=== PATIENT | male | born 1950 | race Caucasian/White ===

== ENCOUNTER → 2020-05-28 | Outpatient (CLI) | payer MEDICARE, MEDICAID ==
[~2020-05-28] MED LIST: ACETAMINOPHEN TAB 650MG DOSE (2X325MG) PO PRN; COMPTAB7 PO; HYDR-643 PO; LEVO50TA5 PO; LIDOCAINE 1% MDV 20ML VIAL As Ordered ONE; MEDICAL MARIJUANA INH; ONDANSETRON 4 MG TAB PO ONE; PANT20TA6 PO; SENN-80 PO; SODIUM BICARBONATE 8.4% INJ 50MEQ 50 ML VIAL As Ordered ONE; [UNRECOGNIZED DRUG - CODE] PO
[2020-05-28 14:55] VITALS: BP 127/78
--- NOTE | 2020-05-28 16:52 | REP ---
INDICATION: kidney biopsy. COMPARISON: None. TECHNIQUE: The procedure was performed by AXEL Jones, under the direct supervision of Dr. Mascorro. The risks and benefits of the procedure were explained to the patient and an informed consent was obtained both verbally and written. Directly prior to the start of the procedure a formal time-out was completed in the procedure room. FINDINGS: Using ultrasound guidance the left renal mass was localized. The skin was prepped and draped in a sterile fashion. Fifteen mL of buffered lidocaine was used as a local anesthetic. Using ultrasound guidance a 17/18 gauge coaxial needle biopsy system was inserted and advanced into the left renal mass. Six core biopsy specimens were obtained and sent to the lab for further analysis. The patient tolerated the procedure well and there were no immediate complications. The patient did have a bout of nausea and was given Zofran P.O.. After the appropriate amount of monitored convalescence the patient was discharged from the department. IMPRESSION: 1. Ultrasound-guided left renal mass biopsy. <Electronically signed by Nicci Corley > 05/28/20 1604 <Electronically signed by Nabil Mascorro > 05/28/20 [id number]
== END ==
LOC: M IRPRO 11:25
PROVIDERS: ATTEND Internal Medicine Hematology & Oncology
DX: C67.9 Malignant neoplasm of bladder, unspecified (principal); Z79.899 Other long term (current) drug therapy; Z88.5 Allergy status to narcotic agent

== ENCOUNTER → 2020-06-05 | Outpatient (REF) | payer MEDICARE, MEDICAID ==
[~2020-06-05] MED LIST changes: -ACETAMINOPHEN TAB 650MG DOSE (2X325MG) PO PRN; +FAMO20TA PO; -LIDOCAINE 1% MDV 20ML VIAL As Ordered ONE; +ONDA8TAB8 PO; -ONDANSETRON 4 MG TAB PO ONE; +OXYC-141 PO; -SODIUM BICARBONATE 8.4% INJ 50MEQ 50 ML VIAL As Ordered ONE
[2020-06-05 13:41] LABS: APPEARANCE, URINE CLOUDY (CLEAR); BACTERIA, URINE AUTO 1+ (NEGATIVE); BILIRUBIN, URINE AUTO NEGATIVE (NEGATIVE); BLOOD, URINE BLOOD 3+ (NEGATIVE); COLOR, URINE RED (YELLOW); GLUCOSE, URINE (UA) AUTO NEGATIVE (NEGATIVE); KETONE, URINE AUTO TRACE mg/dL (NEGATIVE); LEUKOCYTE ESTERASE, URINE AUTO 1+ (NEGATIVE); NITRITE, URINE AUTO NEGATIVE (NEGATIVE); PROTEIN, URINE AUTO 2+ mg/dL (NEGATIVE); RBC, URINE AUTO TNTC /HPF (0-3); SPECIFIC GRAVITY URINE AUTO 1.013 (1.002-1.035); SQUAMOUS EPITHELIAL CELL UR AU 0 /HPF (0-6); UROBILINOGEN, URINE AUTO 0.2 mg/dL (0.0-2.0); WBC, URINE AUTO 123 /HPF (0-3)
== END ==
LOC: M SMT 13:07
PROVIDERS: ATTEND Nurse Practitioner Women's Health
DX: R31.0 Gross hematuria (principal)

== ENCOUNTER → 2020-06-11 | Outpatient (CLI) | payer MEDICARE, MEDICAID ==
--- NOTE | 2020-06-12 14:44 | REP ---
INDICATION: DIAGNOSING PULMONARY LUNG NODULE. History of colon carcinoma in 2017. Recent ultrasound-guided left pararenal space needle biopsy produced a histologic diagnosis of invasive high-grade papillary urothelial carcinoma. COMPARISON: Comparison CT abdomen and pelvis May 18, 2020 from [facility].. TECHNIQUE: Fifty-two minutes following the intravenous injection of a 8.38 mCi dose of F-18 FDG, three-dimensional PET scintigraphy is acquired from the skull base to the proximal thighs. Triplanar noncontrast CT scanning is acquired through the same anatomic range for attenuation correction, and image registration with scan parameters optimized to minimize radiation exposure to the patient. PET scintigraphy and CT datasets were fused and displayed on a workstation with multiplanar and projection display capability. FINDINGS: There is fairly bulky left supraclavicular lymphadenopathy extending into the left subclavian node chain. Maximum standard uptake value in the supraclavicular region is 9.35. The subclavian lymph node hypermetabolic uptake on the left mass has a maximum SUV of 8.42. There are multiple small pulmonary nodules predominantly in the lower lung castro. Some of these are mildly hypermetabolic with maximum SUV value ranging up to 3.71. There are 3 to 4 identifiable foci of hypermetabolic uptake in the liver the largest of which is inferiorly in the right lobe maximum standard uptake value 8.30. There is bulky upper abdominal retroperitoneal hypermetabolic adenopathy. Maximum standard uptake value in this aortocaval and upper abdominal retroperitoneal adenopathy ranges up to 10.41. There is a very large infiltrative mass in the left kidney extending in the perinephric and pararenal fat. This is shows heterogeneous hypermetabolic uptake maximum standard uptake value up to 10.42. Retroperitoneal ryder hypermetabolic uptake extends into the right common iliac lymph node chain where maximum standard uptake value is 9.19. There are 2 foci of hypermetabolic uptake in the pelvis consistent with skeletal metastatic lesions. One is in the right iliac bone, maximum SUV value 4.64 and the other is in the left anterior iliac wing where maximum SUV values 5.81. IMPRESSION: Large infiltrative renal and pararenal space mass on the left with bulky regional and retroperitoneal metastatic adenopathy. There is a hypermetabolic metastatic disease in the liver, in the bony pelvis, and in the lungs. Hypermetabolic adenopathy is seen in the left supraclavicular and left subclavian lymph node chain. <Electronically signed by Joe Locke > 06/12/20 [id number]
== END ==
LOC: M PLARAD 13:13
PROVIDERS: ATTEND Internal Medicine Hematology & Oncology
DX: R91.8 Other nonspecific abnormal finding of lung field (principal); C68.8 Malignant neoplasm of overlapping sites of urinary organs; C78.7 Secondary malignant neoplasm of liver and intrahepatic bile duct
CPT/HCPCS: 78815; A9552

== ENCOUNTER → 2020-07-05 | Outpatient (CLI) | payer MEDICARE, MEDICAID ==
[~2020-07-05] MED LIST changes: +LIDOCAINE 1% MDV 20ML VIAL As Ordered ONE; +MIDAZOLAM INJ 2MG/2ML VIAL (J2250 PER 1MG) As Ordered ONE; +MOM30SS PO; +ceFAZolin 2 GM/D5W 50 ML IV BAG (J0690 PER 500MG) As Ordered ONE; +diphenhydrAMINE 50MG/ML VIAL (J1200) As Ordered ONE; +fentaNYL 100 MCG/2 ML INJECTION (J3010) As Ordered ONE
--- NOTE | 2020-07-05 10:16 | IRHP ---
[facility] IR Pre-Procedure H & P General Date of Service: Jul 05, 2020 Procedure: Same Day Surgery Interval History and Physical I have seen the patient and reviewed last H & P performed within 30 days. There is no significant interval change. History of Present Illness Chief Complaint The patient is a 70-year-old male admitted with a reason for visit of Urothelial Cancer. PRE-PROCEDURE DIAGNOSIS: urothelial cancer HEART: normal rate. LUNGS: normal breathing at rest. ASA Classification ASA Classification: III-Severe systemic dis. Mallampati Score: II NPO: Yes Problems with prior sedation: No Obstructive Sleep Apnea: No Plan moderate sedation Allergies Coded Allergies: codeine (Verified Adverse Reaction, Mild, CLAMMY SKIN, 05/27/20) Home Medications Scheduled Famotidine (Famotidine), 20 MG PO BID Hydroxyzine HCl (Hydroxyzine HCl), 10 MG PO DAILY Levothyroxine Sodium (Levothyroxine Sodium), 50 MCG PO DAILY, (Reported) Ondansetron (Ondansetron Odt), 8 MG PO Q6H Oxycodone HCl (Oxycontin), 1 TAB PO PRN, (Reported) Saw/Vit E/Sod Pauly/Lyc/Beta/Pyg (Prostate Health Caplet), 1 TAB PO DAILY, (Reported) Sennosides (Senna), 2 TAB PO BID Scheduled PRN [Medical Marijuana], Unknown Dose INH PRN PRN for PAIN, (Reported) Miscellaneous Medications Milk Of Magnesia (Milk of Magnesia), 30 ML PO, (Reported) VS, I&O, 24H, Fishbone Vital Signs/I&O Vital Signs Date Time Temp Pulse Resp B/P (MAP) Pulse Ox O2 Delivery O2 Flow Rate FiO2 07/05/20 08:55 98.7 57 18 97 Room Air LORNA LARA MD Jul 05, 2020 10:16
--- NOTE | 2020-07-05 11:28 | POST-OPPD ---
Postoperative Procedure Note Date Of Procedure: Jul 05, 2020 Time Of Procedure: 11:28 IR Ultrasound and fluoroscopy guided port placement IR Ultrasound of the neck. IR Moderate sedation. Clinical indication: Urothelial cancer. Physician: Dr. Cotto. Procedure: The patient was advised of the benefits, risks, and alternatives of the procedure and informed consent was obtained. A time-out was performed with verification of the patient's name, MRN, site of procedure and type of procedure to be performed. The patient was positioned in the supine position on the angiographic table. The site was prepped and draped in the usual sterile fashion. Moderate sedation was performed by the physician including the presence of an independent trained RN who assisted and monitored the patient's level of consciousness and physiologic status. Following the administration of fentanyl and Versed , the physician spent 45 minutes of continuous face to face time with the patient. Ultrasound of the neck reveals a patent and compressible right internal jugular vein. A marketing administrative assistant radiograph reveals no gross abnormality. The neck and anterior chest wall were anesthetized with lidocaine. The right internal jugular vein was accessed using a microintroducer needle under ultrasound guidance, via a lateral approach. An 018 wire was advanced into the superior vena cava, the needle was removed and a microsheath was placed. An Amplatz wire was then passed into the inferior vena cava. An incision at the internal jugular vein access site and anterior chest wall were made using a scalpel. An incision was made at the anterior chest wall. A small pocket was created using a combination of blunt and sharp dissection. A tunneling device was then used to pass the catheter from the pocket to the neck puncture site. An 8- Romanian Angio Merfac Smart power port was then positioned in the pocket. The catheter was then measured and cut. The introducer sheath was exchanged for a peel-away sheath. The catheter was passed through the peel-away sheath into the internal jugular vein and the peel-away sheath was removed. The port tip was positioned at the cavoatrial junction. The port was then accessed with a Rossi needle. The port flushes and aspirates well. The puncture site in the neck was closed. The chest wall incision was then closed with 2-0 Vicryl and 4-0 Monocryl. Glue and Steri- Strips were applied. A sterile dressing was then applied. The patient tolerated the procedure well and was returned to the PRU in stable condition. Estimated blood loss: <5 ml. Complications: None. Conclusion: 1. Successful placement of an 8-Romanian Angio dynamics Smart power port via the right internal jugular vein. The port is ready for immediate use. 2. Patient to follow up in IR clinic in 2 weeks. Thank you for this referral. LORNA COTTO MD Jul 05, 2020 11:28
[2020-07-05 12:51] VITALS: BP 132/77
== END ==
LOC: M IRPRO 08:47
PROVIDERS: ATTEND Radiology Diagnostic Radiology
DX: C67.9 Malignant neoplasm of bladder, unspecified (principal); Z79.899 Other long term (current) drug therapy; Z88.5 Allergy status to narcotic agent
CPT/HCPCS: 36561; 99152; 99153; C1769; C1788; C1894; J0690; J1200; J1642; J1644; J2250; J3010

== ENCOUNTER → 2020-07-23 | Outpatient (POV) | payer MEDICARE, MEDICAID ==
[~2020-07-23] MED LIST changes: -LIDOCAINE 1% MDV 20ML VIAL As Ordered ONE; -MIDAZOLAM INJ 2MG/2ML VIAL (J2250 PER 1MG) As Ordered ONE; +PROC10TA4 PO; -ceFAZolin 2 GM/D5W 50 ML IV BAG (J0690 PER 500MG) As Ordered ONE; -diphenhydrAMINE 50MG/ML VIAL (J1200) As Ordered ONE; -fentaNYL 100 MCG/2 ML INJECTION (J3010) As Ordered ONE
--- NOTE | 2020-07-25 11:50 | IRPN ---
[facility] IR Progress Note IR Progress Note DATE: Jul 23, 2020 Patient agreed to this telephone follow-up. I spent 5 minutes talking to the patient. Video conferencing was done. FOLLOW-UP: Status post port placement. Patient denies pain, swelling or discharge at the site. Port has not been used yet. ON EXAMINATION: Video conference: Port site appears to be healing well. No Steri-Strips remain. Port site appears dry without discharge. No redness or swelling. IMPRESSION: Doing well status post port placement. No further follow-up scheduled unless initiated by patient and/or referring provider. Thank you for this referral Allergies Coded Allergies: codeine (Verified Adverse Reaction, Mild, CLAMMY SKIN, 05/27/20) LORNA LARA MD Jul 25, 2020 11:49
== END ==
LOC: M TMIRPOV 10:20
PROVIDERS: ATTEND Radiology Diagnostic Radiology
DX: Z45.2 Encounter for adjustment and management of vascular access device (principal)